=== PATIENT | male | born 1990 | race Caucasian/White ===

== ENCOUNTER 2017-07-31 22:11 | Emergency (ER) | payer OTHER ==
[2017-07-31 22:20] VITALS: BP 132/71; PULSE 82; TEMP 97.8; BMI 26.2
--- NOTE | 2017-07-31 22:36 | PDOC ---
History of Present Illness - General Chief Complaint: Palpitations Stated Complaint: CHEST PAIN Time Seen by Provider: 07/31/17 22:27 - History of Present Illness Initial Comments: 07/31/17 22:49 27yo male presents ambulatory to the ED with his father for eval of palpitations. States intermittently for the last 3 days he has felt his heart beat "harder" than normal. Denies skipping beats or tachycardia. Pt denies cp/ sob. States he did travel to [facility] 2 months ago. Denies pleuritic cp or leg swelling/calf cramping. Denies cough/rhinorrhea/sore throat. Denies using excessive amounts of caffeine. States he hasn't changed his diet at all. Denies f/c. No abd pain. no n/v/d. No dysuria. No rash. Pt denies taking any meds or drug use. PMHx: denies PSHx: denies Allergies: NKDA Meds: denies Social: no tobacco. +social etoh, denies drugs Past History - Past Medical History Allergies/Adverse Reactions: Allergies Allergy/AdvReac Type Severity Reaction Status Date / Time No Known Allergies Allergy Verified 07/31/17 22:16 Home Medications: Ambulatory Orders NK [No Known Home Medication] 07/31/17 - Suicide/Smoking/Psychosocial Hx Smoking History: Never smoked Hx Alcohol Use: Yes (occasionally) Drug/Substance Use Hx: No Review of Systems - Review of Systems Able to Perform ROS?: Yes Is the patient limited Sinhala proficient: No Constitutional: No: Chills, Fever HEENTM: No: Nose Congestion, Throat Pain Respiratory: No: Cough, Shortness of Breath, SOB at Rest Cardiac (ROS): Yes: Palpitations. No: Chest Pain, Edema, Irregular Heart Rate, Lightheadedness ABD/GI: No: Diarrhea, Nausea, Vomiting, Abdominal cramping : No: Burning, Dysuria Musculoskeletal: No: Back Pain Integumentary: No: Rash Neurological: No: Headache, Numbness, Paresthesia All Other Systems: Reviewed and Negative *Physical Exam - Vital Signs Last Vital Signs Temp Pulse Resp BP Pulse Ox 97.8 F 82 16 132/71 100 07/31/17 22:16 07/31/17 22:16 07/31/17 22:16 07/31/17 22:16 07/31/17 22:16 - Physical Exam General Appearance: Yes: Nourished, Appropriately Dressed. No: Apparent Distress HEENT: positive: EOMI, Normal ENT Inspection, Normal Voice. negative: Rhinorrhea Neck: positive: Normal Thyroid, Supple. negative: Rigid Respiratory/Chest: positive: Lungs Clear, Normal Breath Sounds. negative: Chest Tender, Respiratory Distress Cardiovascular: positive: Regular Rhythm, Regular Rate, S1, S2. negative: Tachycardia Gastrointestinal/Abdominal: positive: Flat, Soft. negative: Guarding, Rebound Musculoskeletal: positive: Normal Inspection Extremity: positive: Normal Inspection, Normal Range of Motion. negative: Swelling, Calf Tenderness Integumentary: positive: Normal Color, Dry, Warm Neurologic: positive: heat treating operator II-XII NML intact, Fully Oriented, Normal Mood/Affect , Motor Strength 5/5 Heart Score/ECG Review - ECG Intrepretation Comment:: 07/31/17 22:53 sinus at 77, nl axis, nl interval, early repol anterior leads, no acute st/t wave findings ED Treatment Course - LABORATORY CBC & Chemistry Diagram: 07/31/17 23:07 07/31/17 23:07 Medical Decision Making - Medical Decision Making 07/31/17 22:54 a/p: 27yo male with palpitations -ekg, cxr -will check labs, tsh, dimer, mag -will give IVF hydration -will monitor and reassess -pt will need halter monitoring or loop recorder as outpt if ED workup normal, will give cardiology follow up 08/01/17 00:15 re-eval: pt has been ambulatory in the ED states he is feeling better after ivf hydration no longer feeling palpitations dimer negative labs reviewed - normal cbc, normal renal function pending tsh at this time pt updated on lab results. 08/01/17 00:51 tsh normal discussed follow up with the patient and his family discussed outpt follow up with cardiology discussed all reasons to return to the ED and need for follow up answered all questions. *DC/Admit/Observation/Transfer Diagnosis at time of Disposition: Palpitations - Discharge Dispostion Disposition: HOME Condition at time of disposition: Stable Admit: No - Referrals Referrals: Max Irving MD [Staff Physician] - Riky Benjamin MD [Staff Physician] - - Patient Instructions Printed Discharge Instructions: DI for Palpitations Additional Instructions: Please drink plenty of water. Please avoid caffeine. Please follow up with your PMD in 2-3 days. Please call the professor of theatre if the palpitations continue. You may need to wear a halter monitor or a loop recorder. Please return to the ED with any further complaints. - Post Discharge Activity
[2017-07-31] MEDS ORDERED: SODIUM CHLORIDE 0.9% 1000 ML INFUS.BAG IV ONE (22:37)
[2017-07-31 23:28] LABS: BASO % 0.4 % (0-2.0); EOS % 0.8 % (0-4.5); HEMATOCRIT 43.6 % (35.4-49); HEMOGLOBIN 14.8 GM/dL (11.7-16.9); LYMPH % 30.6 % (8-40); MCH 29.5 pg (25.7-33.7); MCHC 34.1 g/dl (32.0-35.9); MEAN CELL VOLUME 86.5 fl (80-96); MONO % 8.2 % (3.8-10.2); PLATELET COUNT 198 K/MM3 (134-434); RBC 5.04 M/mm3 (4.00-5.60); RDW 12.8 % (11.9-15.9); WHITE BLOOD COUNT 8.4 K/mm3 (4.0-10.0)
[2017-07-31 23:31] LABS: URINE APPEARANCE CLEAR; URINE BILIRUBIN NEGATIVE (NEGATIVE); URINE BLOOD NEGATIVE (NEGATIVE); URINE COLOR LTYELLOW; URINE GLUCOSE (UA) NEGATIVE (NEGATIVE); URINE KETONE NEGATIVE (NEGATIVE); URINE LEUK ESTERASE NEGATIVE (NEGATIVE); URINE NITRITE NEGATIVE (NEGATIVE); URINE PROTEIN NEGATIVE (NEGATIVE); URINE UROBILINOGEN NEGATIVE mg/dL (0.2-1.0)
[2017-07-31 23:51] LABS: ALBUMIN 4.5 g/dl (3.4-5.0); ANION GAP 12 (8-16); BILIRUBIN,TOTAL 0.5 mg/dL (0.2-1.0); BLOOD UREA NITROGEN 14 mg/dL (7-18); CHLORIDE 101 mmol/L (98-107); CO2 30 mmol/L (21-32); CREATININE 1.1 mg/dL (0.7-1.3); GLUCOSE,RANDOM 97 mg/dL (74-106); MAGNESIUM 2.1 mg/dL (1.8-2.4); POTASSIUM 3.5 mmol/L (3.5-5.1); SGOT/AST 21 U/L (15-37); SGPT/ALT 33 U/L (12-78); SODIUM 143 mmol/L (136-145); TOT PROT 7.9 g/dl (6.4-8.2)
[2017-07-31 23:52] LABS: ALK PHOS 77 U/L (45-117)
[2017-08-01 00:34] LABS: COCAINE, UR NEGATIVE ng/ml (CUTOFF=300); METHADONE, UR NEGATIVE ng/ml (CUTOFF=300); OPIATES, URI NEGATIVE ng/ml (CUTOFF=300); PHENCYCLIDINE,URINE NEGATIVE ng/ml (CUTOFF=25); URINE AMPHETAMINES NEGATIVE ng/ml (CUTOFF=500); URINE BARBITURATES NEGATIVE ng/ml (CUTOFF=200); URINE BENZODIAZEPINES NEGATIVE ng/ml (CUTOFF=200)
--- NOTE | 2017-08-01 12:24 | EKG ---
Test Reason : Blood Pressure : / mmHG Vent. Rate : 077 BPM Atrial Rate : 077 BPM P-R Int : 140 ms QRS Dur : 100 ms QT Int : 370 ms P-R-T Axes : 063 062 051 degrees QTc Int : 418 ms NORMAL SINUS RHYTHM RSR' OR QR PATTERN IN V1 SUGGESTS RIGHT VENTRICULAR CONDUCTION DELAY BORDERLINE ECG NO PREVIOUS ECGS AVAILABLE Confirmed by KENZIE THOMAS MD ([id number]) on 08/01/2017 12:24:48 PM Referred By: Confirmed By:KENZIE THOMAS MD
== END 2017-08-01 00:57 | disposition home or self-care (01) ==
LOC: JER 22:11
PROC: 3E0337Z Introduction of Electrolytic and Water Balance Substance into Peripheral Vein, Percutaneous Approach (ICD-10-PCS; principal; 2017-07-31)
DX: R00.2 Palpitations (principal)
CPT/HCPCS: 36415; 71046-TC-FY; 80053; 80307; 81003; 83735; 84443; 85025; 85379; 93005; 93010; 99283-25

== ENCOUNTER 2017-09-08 08:12 | Emergency (ER) | payer OTHER ==
[2017-09-08 08:37] VITALS: BP 119/68; PULSE 69; TEMP 99.1; BMI 22.1
--- NOTE | 2017-09-08 08:48 | PDOC ---
History of Present Illness - General Chief Complaint: Toothache Stated Complaint: TOOTHACHE Time Seen by Provider: 09/08/17 08:44 History Source: Patient Exam Limitations: No Limitations - History of Present Illness Initial Comments: 09/08/17 08:44 27 years M with dental pain X 4 days Past History - Past Medical History Allergies/Adverse Reactions: Allergies Allergy/AdvReac Type Severity Reaction Status Date / Time No Known Allergies Allergy Verified 09/08/17 08:37 Home Medications: Ambulatory Orders Amoxicillin/Potassium Clav [Augmentin 875-125 Tablet] 1 each PO BID #20 tablet 09/08/17 Ibuprofen 800 mg PO ACDIN #21 tablet 09/08/17 COPD: No - Suicide/Smoking/Psychosocial Hx Smoking History: Never smoked Hx Alcohol Use: Yes (occasionally) Drug/Substance Use Hx: No Review of Systems - Review of Systems Constitutional: No: Chills, Fever HEENTM: Yes: Dental Problems. No: Ear Pain, Ear Discharge, Nose Pain, Nose Congestion, Throat Pain, Throat Swelling, Mouth Pain, Difficulty Swallowing, Mouth Swelling Respiratory: No: Cough, Shortness of Breath Cardiac (ROS): No: Chest Pain *Physical Exam - Vital Signs Last Vital Signs Temp Pulse Resp BP Pulse Ox 99.1 F 69 18 119/68 99 09/08/17 08:35 09/08/17 08:35 09/08/17 08:35 09/08/17 08:35 09/08/17 08:35 - Physical Exam General Appearance: Yes: Nourished, Appropriately Dressed HEENT: positive: Pharynx Normal, Other (+ carious teeth noted in Left lower molar region, + gum tenderness, no abscess) Respiratory/Chest: positive: Lungs Clear, Normal Breath Sounds Cardiovascular: positive: Regular Rhythm, Regular Rate, S1, S2 Neurologic: positive: Fully Oriented, Alert Medical Decision Making - Medical Decision Making 09/08/17 08:48 7 years old male with dental pain for 4 days. Pt felt his took cracked while eating. Denies f/c. 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 no dental abscess Plan: Augmentin BID X 10 days with instructions to f/u Dentist tomorrow *DC/Admit/Observation/Transfer Diagnosis at time of Disposition: Pain, dental - Discharge Dispostion Disposition: HOME Condition at time of disposition: Stable Admit: No - Prescriptions Prescriptions: Amoxicillin/Potassium Clav [Augmentin 875-125 Tablet] 1 each PO BID #20 tablet Ibuprofen 800 mg PO ACDIN #21 tablet - Referrals Referrals: Дмитрий Johnson MD [Primary Care Provider] - - Patient Instructions - Post Discharge Activity
== END 2017-09-08 08:57 | disposition home or self-care (01) ==
LOC: JERFT 08:12
DX: K02.9 Dental caries, unspecified (principal)
CPT/HCPCS: 99281-25

== ENCOUNTER 2022-05-16 18:03 | Emergency (ER) | payer OTHER ==
[2022-05-16 18:18] VITALS: BP 121/76; PULSE 92; RESP 19; TEMP 98.6; BMI 26.6
[2022-05-16 20:07] LABS: PH,URINE 5.5 (5.0-8.0); URINE APPEARANCE CLEAR; URINE BILIRUBIN NEGATIVE (NEGATIVE); URINE COLOR YELLOW; URINE GLUCOSE (UA) NEGATIVE (NEGATIVE); URINE KETONE 2+ (NEGATIVE); URINE LEUK ESTERASE NEGATIVE (NEGATIVE); URINE NITRITE NEGATIVE (NEGATIVE); URINE PROTEIN TRACE (NEGATIVE)
[2022-05-16 21:17] LABS: HIV INTERPRETATION NEGATIVE (NEGATIVE)
[2022-05-16] MEDS ORDERED: DOXYCYCLINE HYCLATE 100 MG CAPSULE PO ONE ×2 (21:40→21:42)
== END 2022-05-16 21:51 | disposition home or self-care (01) ==
LOC: JERFT 18:03 → JER 18:03 → JERFT 21:51
PROC: 3E023GC Introduction of Other Therapeutic Substance into Muscle, Percutaneous Approach (ICD-10-PCS; principal; 2022-05-16)
DX: A64 Unspecified sexually transmitted disease (principal)
CPT/HCPCS: 36415; 81003; 87086; 87389; 87491; 87591; 96372; 99284-25

== ENCOUNTER 2022-08-18 23:09 | Emergency (ER) | payer OTHER ==
[2022-08-18 23:20] VITALS: BP 100/65; PULSE 102; RESP 20; TEMP 98.7; BMI 25.7
[2022-08-18] MEDS ORDERED: ONDANSETRON *ODT* 4 MG TABLET SL ONE (23:59)
[2022-08-18] MEDS ORDERED: IBUPROFEN 400 MG TABLET (FP) PO ONE (23:59)
[2022-08-19] MEDS ORDERED: IBUPROFEN 400 MG TABLET (FP) PO ONE (00:02)
[2022-08-19] MEDS ORDERED: ONDANSETRON *ODT* 4 MG TABLET ONE (00:03)
== END 2022-08-19 01:40 | disposition home or self-care (01) ==
LOC: JER 23:09
DX: R11.0 Nausea (principal); R50.9 Fever, unspecified; R05.1 Acute cough; J02.9 Acute pharyngitis, unspecified; J10.1 Influenza due to other identified influenza virus with other respiratory manifestations; Z20.822 Contact with and (suspected) exposure to COVID-19
CPT/HCPCS: 0241U-QW; 71046-TC-FY; 99284-25; Q0162

== ENCOUNTER 2023-12-07 20:47 | Emergency (ER) | payer OTHER ==
[2023-12-07 20:55] VITALS: BMI 28.0
[2023-12-07] MEDS ORDERED: CLINDAMYCIN HCL 150 MG CAPSULE (FP) ONE (21:55)
[2023-12-07 22:55] LABS: BASO % 0.3 % (0-2.0); EOS % 0.1 % (0-4.5); HEMATOCRIT 41.4 % (35.4-49); HEMOGLOBIN 14.6 GM/dL (11.7-16.9); LYMPH % 5.2 % (8-40); MCH 29.6 pg (25.7-33.7); MCHC 35.2 g/dl (32.0-35.9); MEAN CELL VOLUME 84.1 fl (80-96); MEAN PLT VOLUME 8.8 fl (7.5-11.1); MONO % 12.9 % (3.8-10.2); NEUT % 81.5 % (42.8-82.8); PLATELET COUNT 140 10^3/uL (134-434); RBC 4.93 M/mm3 (4.00-5.60); RDW 13.3 % (11.9-15.9); WHITE BLOOD COUNT 5.6 K/mm3 (4.0-10.0)
[2023-12-07] MEDS: SODIUM CHLORIDE 0.9% 500 ML INFUS.BAG IV ONE (22:56)
[2023-12-07 23:24] LABS: POTASSIUM 3.9 mmol/L (3.5-5.1)
[2023-12-07 23:27] LABS: ALBUMIN 4.2 g/dl (3.4-5.0); BLOOD UREA NITROGEN 12.1 mg/dL (7-18); CALCIUM 9.4 mg/dL (8.5-10.1)
[2023-12-07 23:30] LABS: CREATININE 1.1 mg/dL (0.55-1.3)
[2023-12-07 23:31] LABS: BILIRUBIN,TOTAL 0.8 mg/dL (0.2-1); TOT PROT 7.3 g/dl (6.4-8.2)
[2023-12-08] MEDS ORDERED: KETOROLAC TROMETHAMINE 15 MG/ML VIAL ONE
[2023-12-08] MEDS: KETOROLAC TROMETHAMINE 15 MG/ML VIAL IVPUSH ONE (00:02)
[2023-12-08 00:20] VITALS: BP 103/59; PULSE 103; RESP 19; TEMP 100
== END 2023-12-08 00:21 | disposition home or self-care (01) ==
LOC: JER 20:47 → JERFT 20:47 → JER 12-08 00:21
PROC: 3E0333Z Introduction of Anti-inflammatory into Peripheral Vein, Percutaneous Approach (ICD-10-PCS; principal; 2023-12-08)
DX: R50.9 Fever, unspecified (principal); M79.10 Myalgia, unspecified site; R51.9 Headache, unspecified; R07.89 Other chest pain; M54.50 Low back pain, unspecified; R42 Dizziness and giddiness; R53.1 Weakness; R63.0 Anorexia; R11.2 Nausea with vomiting, unspecified; Z20.822 Contact with and (suspected) exposure to COVID-19
CPT/HCPCS: 0241U-QW; 36415; 71046-TC-FY; 80053; 82550; 82930; 84484; 85025; 86618; 86753; 87651; 93005; 93010; 99285-25